=== PATIENT | male | born 1980 | race Caucasian/White ===

== ENCOUNTER 2017-01-12 17:09 | Emergency (ER) | payer OTHER ==
[~2017-01-12] VITALS: Ht 182.9 cm; Wt 79.3 kg
[2017-01-12 17:14] VITALS: TEMP 36.9; Ht 182.9 cm; Wt 79.3 kg
[2017-01-12] MEDS ORDERED: SULFAMETHOXAZOLE/TRIMETHOPRIM DS 800/160MG TAB PO STA (17:29)
[2017-01-12] MEDS ORDERED: CEPH500C PO (17:37)
--- NOTE | 2017-01-12 18:30 | DIAGNOSTIC IMAGING REPORT ---
L EXTREMITY NONVASCULAR LIMITED HISTORY: 36 years-old Male Eval L forearm cellulitis, possible FB acute sialitis of the left forearm with concern for foreign body COMPARISON: None available TECHNIQUE: Multiple real-time sonographic images of the left forearm were obtained assessing grayscale appearance and color Doppler flow FINDINGS: Moderate amount of soft tissue edema and skin thickening is noted throughout the left forearm. At the area of concern within the left forearm there is a linear echogenic structure within the subcutaneous tissues with posterior acoustic shadowing, 0.2 cm in length. No drainable fluid collection to suggest abscess. IMPRESSION: 2 mm linear echogenic foreign body is noted at the area of concern just deep to the skin surface. Moderate associated cellulitis without drainable abscess. The above report was generated using voice recognition software. It may contain grammatical, syntax or spelling errors. Electronically signed by: Rodríguez Negro M.D. 01/12/2017 6:29 PM Dictated Date/Time: 01/12/2017 6:26 PM
[2017-01-12] MEDS ORDERED: SULF800T23 PO (18:57)
[2017-01-12 19:14] VITALS: BP 119/69; PULSE 54; O2SAT 100
--- NOTE | 2017-01-12 23:19 | EMERGENCY ROOM VISIT NOTE ---
History First contact with patient: 17:18 Chief Complaint: BITE Stated Complaint: BIT BY SOMETHING ON SATURDAY,LT FOREARM PAIN/SWELL History of Present Illness The patient is a 36 year old male who presents to the Emergency Room with complaints of left forearm swelling and redness after suffering a wound to his left forearm on . The patient reports that he was cleaning brush off of an embankment, and when he was finished noticed 2 puncture wounds. The patient then reports that it started to look black and started to swell. He was seen by his PCP yesterday and provided a prescription for Keflex. He reports no improvement of his infection. He denies any fevers or chills, and rates his discomfort a 2 out of 10. Tetanus immunization is up-to-date. The patient is [id number]. The patient reports that he does have close contact with a friend who has MRSA. Review of Systems 10 system review was performed and was negative except for pertinent positives and negatives as indicated in history of present illness Past Medical/Surgical History Medical Problems: (1) Alcohol Abuse-Unspec (2) ASTHMA W/O STATUS ASTHM (3) Lumbago (4) Tobacco Use Disorder Surgical Problems: (1) History of hand surgery Family History FH: cancer FH: diabetes mellitus FH: gallbladder disease FH: heart disease FH: hypertension FH: kidney disease FH: lung disease Social History Smoking Status: Current Every Day Smoker Alcohol Use: none Marital Status: single Occupation Status: employed Current/Historical Medications Scheduled Cephalexin Monohydrate (Keflex), 500 MG PO QID Sulfa/Trimethoprim (Bactrim Ds 800MG/160MG), 1 TAB PO BID Physical Exam Vital Signs Date Time Temp Pulse Resp B/P (MAP) Pulse Ox O2 Delivery O2 Flow Rate FiO2 01/12/17 19:14 54 18 119/69 100 01/12/17 17:14 36.9 89 16 121/65 99 Room Air Physical Exam CONSTITUTIONAL: Healthy and well nourished. Alert and oriented X 3 with positive affect. Patient does not appear in any acute distress. HEENT: Normocephalic, atraumatic. Pupils equal, round and reactive. NECK: Full active range of motion without discomfort. RESPIRATORY: Clear to auscultation bilaterally with no wheezing, crackles, rhonchi or stridor. CARDIOVASCULAR: Regular rate and rhythm with no murmurs, rubs or gallops. MUSCULOSKELETAL: Examination of the left dorsal forearm shows an area of mild erythema and edema approximately 5 inches in diameter. There is a central linear abrasion with an area of dried blood. Just radial to the area of dried blood, there is a palpable hard region that is in the same alignment as the overriding skin abrasion, concerning for possible foreign body. Otherwise no purulent drainage is noted from the wound. The patient is able to flex and extend the fingers and wrist without discomfort. Capillary refill is less than 2 seconds. INTEGUMENTARY: No rash or other significant dermatologic conditions noted. NEUROLOGIC: Left hand and fingers are sensory intact. Medical Decision & Procedures ER Provider Diagnostic Interpretation: Ultrasound of the left dorsal forearm shows a possible subcutaneous 2 mm linear foreign body without evidence for abscess formation. Radiologist report is as follows: L EXTREMITY NONVASCULAR LIMITED HISTORY: 36 years-old Male Eval L forearm cellulitis, possible FB acute sialitis of the left forearm with concern for foreign body COMPARISON: None available TECHNIQUE: Multiple real-time sonographic images of the left forearm were obtained assessing grayscale appearance and color Doppler flow FINDINGS: Moderate amount of soft tissue edema and skin thickening is noted throughout the left forearm. At the area of concern within the left forearm there is a linear echogenic structure within the subcutaneous tissues with posterior acoustic shadowing, 0.2 cm in length. No drainable fluid collection to suggest abscess. IMPRESSION: 2 mm linear echogenic foreign body is noted at the area of concern just deep to the skin surface. Moderate associated cellulitis without drainable abscess. Medications Administered Medications (Trade) Dose Ordered Sig/Gerardo Route Start Time Stop Time Status Last Admin Dose Admin Trimethoprim/ Sulfamethoxazole (Septra Ds 800/ 160MG Tab) 1 tab NOW STAT PO 01/12/17 17:29 01/12/17 17:30 DC 01/12/17 17:34 1 TAB ED Course Patient history and physical exam were performed. Nurse's notes were reviewed. Vital signs were reviewed and were normal. The patient did not appear in any acute discomfort, and refused any analgesics. The patient was administered Bactrim DS. Physical exam is concerning for possible underlying foreign body. Nonvascular ultrasound of the region shows what appears to be a linear 2 mm foreign body in the subcutaneous tissue. Because of difficulty in locating this foreign body, along with its size, I elected to refer the patient to orthopedics to determine if foreign body removal is warranted. Because the patient does have exposure to a friend with MRSA, I did elect to also add Bactrim DS antibiotics to his current Keflex treatment. The patient was encouraged to keep the wound clean and covered with an antibiotic ointment and dressing, returning to the emergency department for any progressively worsening infection. The patient was happy with plan of care, voiced understanding of all discharge instructions, and denied any significant pain at the time of discharge. Medical Decision Medication Reconcilliation Current Medication List: was personally reviewed by me Blood Pressure Screening Patient's blood pressure: Normal blood pressure Impression Primary Impression: Foreign body of left forearm with infection Departure Information Prescriptions Sulfa/Trimethoprim (Bactrim Ds 800MG/160MG) Tab 1 TAB PO BID for 7 Days, #14 TAB Prov: Navarro Sanchez PA 01/12/17 Referrals No Doctor, Assigned (PCP) Patient Instructions My [facility] Problem Qualifiers Primary Impression: Foreign body of left forearm with infection Encounter type: initial encounter Qualified Codes: S50.852A - Superficial foreign body of left forearm, initial encounter; L08.9 - Local infection of the skin and subcutaneous tissue, unspecified
== END 2017-01-12 19:14 | disposition home or self-care (01) ==
LOC: C.EDB 17:12 → C.EDD 19:14
DX: S50.872A Other superficial bite of left forearm, initial encounter (principal); M79.5 Residual foreign body in soft tissue; L03.114 Cellulitis of left upper limb; W57.XXXA Bitten or stung by nonvenomous insect and other nonvenomous arthropods, initial encounter; F17.210 Nicotine dependence, cigarettes, uncomplicated